=== PATIENT | male | born 1970 | race Caucasian/White ===

== ENCOUNTER 2016-11-12 16:46 | Emergency (ER) | payer OTHER ==
[2016-11-12] MEDS ORDERED: DEXAMETHASONE 10 MG/ML VIAL PO STA (17:04)
[2016-11-12] MEDS ORDERED: IPRATROPIUM/ALBUTEROL 3 ML NEB INH STA (17:04)
[2016-11-12] MEDS ORDERED: DEXAMETHASONE 10 MG/ML VIAL ONE (17:08)
[2016-11-12] MEDS ORDERED: CHERRY SYRUP 10 ML UDC PO ONE (17:08)
[2016-11-12] MEDS ORDERED: IPRATROPIUM/ALBUTEROL 3 ML NEB INH ONE (17:15)
== END 2016-11-12 17:43 | disposition home or self-care (01) ==
DX: J45.21 Mild intermittent asthma with (acute) exacerbation (principal); H66.003 Acute suppurative otitis media without spontaneous rupture of ear drum, bilateral; F17.200 Nicotine dependence, unspecified, uncomplicated
CPT/HCPCS: 94640; 99282; 99283; A9270; J7620

== ENCOUNTER 2018-08-08 09:42 | Outpatient (CLI) | payer OTHER ==
--- NOTE | 2018-08-08 15:00 | MRI Report ---
Reason: LATERAL EPICONDYLITIS, UNSPECIFIED ELBOW Procedure Date: 08/08/2018 Accession Number: [id number] / [id number] Procedure: MRI - Elbow RT W/O CPT Code: FULL RESULT: EXAM: RIGHT ELBOW MRI WITHOUT CONTRAST EXAM DATE: 08/08/2018 10:47 AM. CLINICAL HISTORY: LATERAL EPICONDYLITIS, UNSPECIFIED ELBOW. COMPARISON: None. TECHNIQUE: Multiplanar, multisequence T1-weighted and fluid-sensitive sequences of the elbow without contrast. Other: None. FINDINGS: Bones and articular surfaces:There is a moderate-sized elbow joint effusion. There is amorphous intermediate signal within the joint space consistent with significant areas of synovitis. Synovitis surrounds the radial neck at the proximal radioulnar joint. Marrow edema in the underlying radius. Patchy areas of marrow edema at the medial and lateral epicondyles and adjacent to the articular surfaces. Cartilage thinning throughout the elbow joint. No discrete fracture identified. Musculotendinous structures: The biceps, triceps and brachialis insertions appear intact. The common extensor origin and common flexor pronator origin appear intact. No significant muscle atrophy or fatty replacement. Ligaments: The ulnar collateral, radial collateral, and lateral ulnar collateral ligaments appear grossly intact. IMPRESSION: 1. Elbow joint effusion with cartilage loss, significant synovitis and small areas of possible erosion and reactive marrow edema. The appearance suggests inflammatory arthritis such as rheumatoid arthritis. Septic arthritis is not excluded. Correlate clinically. [facility] MUSCULOSKELET[facility] RADIOLOGY SECTION
== END 2018-08-08 09:43 | disposition home or self-care (01) ==
LOC: DI 09:42
PROVIDERS: ATTEND Nurse Practitioner Family
DX: M24.121 Other articular cartilage disorders, right elbow (principal); M65.9 Synovitis and tenosynovitis, unspecified

== ENCOUNTER 2018-09-15 16:54 | Emergency (ER) | payer OTHER ==
[2018-09-15] MEDS ORDERED: ASPIRIN CHEW 81 MG TABLET PO STA (17:11)
--- NOTE | 2018-09-15 17:13 | ED Physician Documentation ---
PD HPI CHEST PAIN - Stated complaint Stated Complaint: CHEST PX - Chief complaint Chief Complaint: Cardiac - History obtained from History obtained from: Patient - History of Present Illness Timing - onset: Other (48-year-old gentleman with history of coronary disease with an VT and stent x1 in 2003. In 2004 he had a chest pain episode similar to this 1 with no pertinent findings after hospital evaluation. Since then he had milder episodes of chest pain but today has had sharp chest pain in the left anterior chest wall since this morning that is worse with motion of the left arm and deep breathing. He is not short of breath, dizzy, sweaty, or nauseous. He denies that the pain gets worse with exertion.) Review of Systems Constitutional: reports: Reviewed and negative Throat: reports: Reviewed and negative Cardiac: reports: Chest pain / pressure. denies: Palpitations, Pedal edema, Calf pain Respiratory: denies: Dyspnea, Cough GI: denies: Abdominal Pain PD PAST MEDICAL HISTORY - Past Medical History Cardiovascular: Coronary artery disease, [place] HEENT: Other Psych: Depression, Anxiety - Past Surgical History Past Surgical History: Yes Cardiovascular: Coronary stent, Cardiac catheterization, Angioplasty - Present Medications Home Medications: Ambulatory Orders Medication Instructions Recorded Confirmed Albuterol Sulf [Ventolin Hfa 1 - 2 puffs INH Q4HR PRN #1 inhaler 11/12/16 Inhaler] Azithromycin [Zithromax] 250 mg PO DAILY #6 tablet 11/12/16 Benzonatate [Tessalon] 100 - 200 mg PO TID PRN #20 capsule 11/12/16 - Allergies Allergies/Adverse Reactions: Allergies Allergy/AdvReac Type Severity Reaction Status Date / Time No Known Drug Allergies Allergy Verified 05/14/14 22:16 - Social History Does the pt smoke?: Yes Smoking Status: Current every day smoker Does the pt drink ETOH?: No Does the pt have substance abuse?: No - Immunizations Immunizations are current?: No Immunizations: TDAP >10years/unknown - POLST Patient has POLST: No PD ED PE NORMAL - Vitals Vital signs reviewed: Yes - General General: Alert and oriented X 3, No acute distress - HEENT HEENT: PERRL, EOMI - Neck Neck: Supple, no meningeal sign, No bony TTP - Cardiac Cardiac: RRR, No murmur - Respiratory Respiratory: No respiratory distress, Other (He is tender to the left anterior chest wall which reproduces his pain and he winces when he sits up due to the pain. He declines pain medication on initial evaluation.) - Abdomen Abdomen: Soft, Non tender - Back Back: No CVA TTP, No spinal TTP - Extremities Extremities: No edema, No calf tenderness / cord - Neuro Neuro: Alert and oriented X 3, Normal speech Results - Vitals Vitals: Vital Signs - 24 hr 09/15/18 09/15/18 09/15/18 16:59 17:34 17:35 Temperature 36.1 C L Heart Rate 82 79 Respiratory 18 16 Rate Blood Pressure 122/79 118/84 H Blood Pressure 118/84 H [Right] O2 Saturation 96 94 09/15/18 19:32 Temperature Heart Rate 70 Respiratory 27 H Rate Blood Pressure 108/74 Blood Pressure [Right] O2 Saturation 98 Oxygen O2 Source Room air - EKG (time done) 1706 Rate: Rate (enter#) (74) Rhythm: NSR [place]: Normal Intervals: Normal [place] QRS: Normal Ischemia: Normal ST segments Computer interpretation: Agree with computer - Labs Labs: Laboratory Tests 09/15/18 09/15/18 09/15/18 17:10 17:18 17:18 WBC 9.8 RBC 4.92 Hgb 15.4 Hct 46.2 MCV 93.9 MCH 31.2 H MCHC 33.3 RDW 13.3 Plt Count 280 MPV 6.6 L Neut # (Auto) 7.3 H Lymph # (Auto) 1.7 [place] # (Auto) 0.5 Eos # (Auto) 0.2 Baso # (Auto) 0.1 Absolute Nucleated RBC 0.00 Nucleated RBC % 0.0 Sodium 136 Potassium 4.0 Chloride 104 Carbon Dioxide 25 Anion Gap 7.0 BUN 17 Creatinine 1.0 Estimated GFR (MDRD) 80 L Glucose 99 Calcium 8.8 Total Bilirubin 0.6 AST 19 ALT 19 Alkaline Phosphatase 74 Troponin I B-Natriuretic Peptide 9 Total Protein 7.4 Albumin 3.9 Globulin 3.5 Albumin/Globulin Ratio 1.1 Lipase 25 18 18 17:18 19:38 WBC RBC Hgb Hct MCV MCH MCHC RDW Plt Count MPV Neut # (Auto) Lymph # (Auto) [place] # (Auto) Eos # (Auto) Baso # (Auto) Absolute Nucleated RBC Nucleated RBC % Sodium Potassium Chloride Carbon Dioxide Anion Gap BUN Creatinine Estimated GFR (MDRD) Glucose Calcium Total Bilirubin AST ALT Alkaline Phosphatase Troponin I < 0.04 < 0.04 B-Natriuretic Peptide Total Protein Albumin Globulin Albumin/Globulin Ratio Lipase - Rads (name of study) 1v chest Radiology: EMP read contemporaneously (Bilateral indistinct interstitial markings. For this a BNP was ordered and negative, he has no cough. He is a smoker.) PD MEDICAL DECISION MAKING - ED course ED course: 48-year-old gentleman with known coronary disease presents with chest pain actually seems musculoskeletal on examination and seems for him to similar to prior anginal his EKG is nonischemic and initial troponin was negative despite it having been going on all day. He is still fairly high risk patient though and as such we will do serial troponin in the emergency department. Departure - Departure Disposition: 01 Home, Self Care Clinical Impression: Chest wall pain Condition: Good Record reviewed to determine appropriate education?: Yes Instructions: ED Chest Pain Atypical Unkn Cause Comments: Call your doctor to arrange a follow-up appointment, make the next available appointment. In the interim, return anytime if worse or if new symptoms develop.
[2018-09-15 17:24] LABS: BASOPHILS # (AUTO) 0.1 10^3/uL (0.0-0.1); BASOPHILS % (AUTO) 0.9 %; EOSINOPHILS # (AUTO) 0.2 10^3/uL (0.0-0.7); EOSINOPHILS % (AUTO) 1.6 %; HGB - HEMOGLOBIN 15.4 g/dL (14.0-18.0); LYMPHOCYTES # (AUTO) 1.7 10^3/uL (1.5-3.5); LYMPHOCYTES % (AUTO) 17.9 %; MEAN CORPUSCULAR HEMOGLOBIN 31.2 pg (27.0-31.0); MEAN CORPUSCULAR HGB CONC 33.3 g/dL (32.0-36.0); MEAN CORPUSCULAR VOLUME 93.9 fL (80.0-94.0); MEAN PLATELET VOLUME 6.6 fL (7.4-11.4); MONOCYTES # (AUTO) 0.5 10^3/uL (0.0-1.0); MONOCYTES % (AUTO) 5.3 %; NEUTROPHILS # (AUTO) 7.3 10^3/uL (1.5-6.6); NEUTROPHILS % (AUTO) 74.3 %; PLT - PLATELET COUNT 280 10^3/uL (130-450); RED BLOOD COUNT 4.92 10^6/uL (4.70-6.10); RED CELL DISTRIBUTION WIDTH 13.3 % (12.0-15.0); WHITE BLOOD COUNT 9.8 x10^3/uL (4.8-10.8)
[2018-09-15 17:37] LABS: ALBUMIN 3.9 g/dL (3.2-5.5); ALBUMIN/GLOBULIN RATIO 1.1 (1.0-2.2); BILIRUBIN,TOTAL 0.6 mg/dL (0.2-1.0); CALCIUM 8.8 mg/dL (8.5-10.3); TOTAL PROTEIN 7.4 g/dL (6.7-8.2)
--- NOTE | 2018-09-15 17:44 | XRAY Report ---
Reason: CP since this AM Procedure Date: 09/15/2018 Accession Number: [id number] / [id number] Procedure: XR - Chest 1 View X-Ray CPT Code: 56956 FULL RESULT: EXAM: CHEST RADIOGRAPHY EXAM DATE: 09/15/2018 05:22 PM. CLINICAL HISTORY: CP since this AM. COMPARISON: None. TECHNIQUE: 1 view. FINDINGS: Lungs/Pleura: No focal consolidations, effusion, or pneumothorax. Indistinct interstitial markings throughout bilateral lungs. Mediastinum: Within exam limitations, the cardiomediastinal contour is normal. Other: None. IMPRESSION: Bilateral indistinct interstitial markings, edema versus atypical infection. [facility]
[2018-09-15 19:33] VITALS: BP 108/74
[2018-09-15] MEDS ORDERED: HYDROcod/ACET 5/325 Prepack 4 PO STA (20:15)
== END 2018-09-15 20:33 | disposition home or self-care (01) ==
LOC: ED 16:54
DX: R07.89 Other chest pain (principal); I25.10 Atherosclerotic heart disease of native coronary artery without angina pectoris; I25.2 Old myocardial infarction; Z95.5 Presence of coronary angioplasty implant and graft; F17.200 Nicotine dependence, unspecified, uncomplicated
CPT/HCPCS: 36415; 71045; 80053; 83690; 83880; 84484; 85025; 93005; 99283; 99284; A9270

== ENCOUNTER 2018-11-06 11:00 | Outpatient (CLI) | payer OTHER ==
--- NOTE | 2018-11-06 12:33 | XRAY Report ---
Reason: RT ELBOW PX,NECK PX,BACK PX Procedure Date: 11/06/2018 Accession Number: [id number] / [id number] Procedure: WCP - Cervical Spine 2 View CPT Code: FULL RESULT: EXAM: CERVICAL SPINE RADIOGRAPHY EXAM DATE: 11/06/2018 11:12 AM. CLINICAL HISTORY: Right elbow pain, neck pain, back pain. COMPARISONS: None. TECHNIQUE: 3 views. FINDINGS: Alignment: Normal. No spondylolisthesis or scoliosis. Bones: The cervical vertebral bodies and posterior elements are well visualized from the skull base through C7-T1. No fractures or bone lesions. Disks: Disk space narrowing at C5-C6 and C6-C7 with mild anterior marginal osteophyte. Facets: No significant degenerative disease. Soft Tissues: Normal. No prevertebral soft tissue swelling. The visualized lung apices are clear. IMPRESSION: Mild degenerative disk space narrowing C5-C6 and C6-C7. No fracture appreciated. [facility]
--- NOTE | 2018-11-06 12:47 | XRAY Report ---
Reason: RT ELBOW PX,NECK PX,BACK PX Procedure Date: 11/06/2018 Accession Number: [id number] / [id number] Procedure: WCP - Elbow 2 View RT CPT Code: FULL RESULT: EXAM: RIGHT ELBOW RADIOGRAPHY EXAM DATE: 11/06/2018 11:08 AM. CLINICAL HISTORY: Right elbow pain, neck pain, back pain. COMPARISON: None. TECHNIQUE: 2 views. FINDINGS: Bones: Normal. No fractures or bone lesions. Joints: There is elevation of the anterior fat pad consistent with elbow effusion. Joint space otherwise appears normal. Soft Tissues: Normal. No soft tissue swelling. IMPRESSION: Elbow effusion without appreciable fracture. [facility]
--- NOTE | 2018-11-06 12:51 | XRAY Report ---
Reason: RT ELBOW PX,NECK PX,BACK PX Procedure Date: 11/06/2018 Accession Number: [id number] / [id number] Procedure: WCP - Pelvis 1 View CPT Code: FULL RESULT: EXAM: PELVIS RADIOGRAPHY EXAM DATE: 11/06/2018 10:59 AM. CLINICAL HISTORY: Right elbow pain, neck pain, and back pain. COMPARISON: None. TECHNIQUE: 1 view. FINDINGS: Bones: Normal. No fracture or bone lesion. Joints: The visualized hip, pubis symphysis, and sacroiliac joints are preserved. No subluxation. Soft Tissues: Vascular stent overlies the left iliac artery. IMPRESSION: Normal pelvis radiography. [facility]
[2018-11-06 19:38] LABS: CRP - C-REACTIVE PROTEIN 1.5 mg/dL (0-1.0)
[2018-11-06 19:39] LABS: URIC ACID 5.5 mg/dL (2.6-7.2)
[2018-11-06 19:51] LABS: RHEUMATOID FACTOR NEGATIVE (Negative)
[2018-11-08 18:46] LABS: CYCLIC CITRULL PEPTIDE CCP IGG <16 UNITS
[2018-11-11 12:36] LABS: HLA-B27 Negative (Negative)
== END 2018-11-06 11:01 | disposition home or self-care (01) ==
LOC: DI.WCP 11:00
PROVIDERS: ATTEND Internal Medicine Rheumatology
DX: M25.521 Pain in right elbow (principal); M25.421 Effusion, right elbow; M48.02 Spinal stenosis, cervical region; M25.78 Osteophyte, vertebrae; M54.5 Low back pain
CPT/HCPCS: 36415; 72040; 72170; 84550; 85651; 86140; 86200; 86430

== ENCOUNTER 2019-06-10 16:24 | Outpatient (CLI) | payer OTHER ==
--- NOTE | 2019-06-11 08:05 | MRI Report ---
Reason: HEADACHE Procedure Date: 06/10/2019 Accession Number: [id number] / [id number] Procedure: MRI - Brain W/O CPT Code: FULL RESULT: EXAM: MRI BRAIN WITHOUT CONTRAST EXAM DATE: 06/10/2019 05:13 PM. CLINICAL HISTORY: Headache. COMPARISON: None. TECHNIQUE: Multiplanar, multisequence T1-weighted and fluid-sensitive MR sequences of the brain were performed. Sequences optimized for routine evaluation. Other: None. IV Contrast: None. FINDINGS: There is complete opacification of the right maxillary sinus. There is opacification of the anterior right ethmoid complex but the right frontal sinus remains normally aerated. This combination of findings would be consistent with a chronic right maxillary sinusitis which is either of the right maxillary ostium level of obstruction versus possibly represents a partial right-sided ostiomeatal unit pattern of obstruction. The images are degraded by motion. The diffusion-weighted images are normal. There is no evidence of acute or subacute cerebral infarction. The T2 axial FLAIR images are normal. Cerebral volume and ventricular size are normal. The T2* sequence is normal. There is no evidence of subacute or chronic hemorrhage. The bilateral parotid spaces exhibit normal signal intensity. The cerebral vascular flow voids are patent. IMPRESSION: 1. There is no evidence of acute or subacute cerebral infarction. 2. There is complete opacification of the right maxillary sinus and partial opacification of the anterior right ethmoid complex but normal aeration of the right frontal sinus. This combination of findings would be consistent with a chronic right maxillary sinusitis which is either of a right maxillary ostium level of obstruction versus partial right-sided ostiomeatal unit pattern of obstruction. Recommend correlation with clinical symptoms. 3. There is no significant white matter disease. 4. There is no evidence of brain mass. 5. The images are degraded by motion.
== END 2019-06-10 16:25 | disposition home or self-care (01) ==
LOC: DI 16:24
PROVIDERS: ATTEND Physician Assistant
DX: R51 Headache (principal)
CPT/HCPCS: 70551

== ENCOUNTER 2019-07-04 23:01 | Emergency (ER) | payer OTHER ==
--- NOTE | 2019-07-04 23:38 | ED Physician Documentation ---
PD HPI CHEST PAIN - Stated complaint Stated Complaint: CHEST PX - Chief complaint Chief Complaint: Cardiac - History obtained from History obtained from: Patient - History of Present Illness Timing - onset: How many weeks ago (1) Timing - details: Still present (had onset tonight again with intercourse/exertion, and had chest pain that persisted after rest.), Intermittant (with exertion) Quality: Pressure, Tightness, Aching, Dull. No: Sharp, Tearing Location: Substernal, Left chest Radiation: No: Jaw, Neck, Back Improved by: Rest (except for tonight) Worsened by: Exertion (Has noted substernal chest pain associated with exertional activity earlier in the week with working on his transmission and doing some heavy lifting. It would improve after resting. It happened several times through the week. He denied any rest symptoms. Tonight having intercourse with his he noticed the onset of the similar pain but much worse and it did not improve with rest. He is here for evaluation.) Similar symptoms before: Diagnosis (He states had an [place] about 12 years ago [place] and [place] single stent placed in his left coronary artery. He states that the time he was told his right artery had about an 80% blockage but was not enough for stenting at the time. He had cardiac rehab and follow-up with the budget manager for a year or 2. He then moved here and had not had any symptoms and did not have any cardiology follow-up.) Recently seen: Not recently seen Review of Systems Constitutional: denies: Fever, Chills Nose: denies: Rhinorrhea / runny nose, Congestion Throat: denies: Sore throat Cardiac: reports: Chest pain / pressure (with exertion this past week). denies: Palpitations, Pedal edema, Calf pain Respiratory: denies: Dyspnea, Cough GI: denies: Abdominal Pain, Nausea, Vomiting, Diarrhea Musculoskeletal: denies: Neck pain, Back pain Neurologic: denies: Generalized weakness, Focal weakness, Numbness, Near syncope, Altered mental status Endocrine: denies: Weight loss, Easy bruising / bleeding Immunocompromised: denies: Immunocompromised PD PAST MEDICAL HISTORY - Past Medical History Past Medical History: Yes Cardiovascular: Coronary artery disease, [place] Respiratory: None Neuro: None Endocrine/Autoimmune: None GI: None : None HEENT: Other Psych: Depression, Anxiety Musculoskeletal: None Derm: None - Past Surgical History Past Surgical History: Yes Cardiovascular: Coronary stent (about 12 years ago of LAD, and also reported 80% stenosis of right coronary artery but not needing stent at the time. Had ca rdiology follow up for 2 years, but then moved here to [facility] without Cardiology testing in the interim. ), Cardiac catheterization, Angioplasty - Present Medications Home Medications: Ambulatory Orders Medication Instructions Recorded Confirmed Aspirin Chewable [St Sanjay 81 mg PO DAILY 07/05/19 07/05/19 Aspirin] Statins Cholesterol Med 07/05/19 - Allergies Allergies/Adverse Reactions: Allergies Allergy/AdvReac Type Severity Reaction Status Date / Time No Known Drug Allergies Allergy Verified 07/04/19 23:03 - Living Situation Living Situation: reports: With spouse/s.o. Living Arrangement: reports: At home - Social History Does the pt smoke?: Yes Smoking Status: Current every day smoker Does the pt drink ETOH?: No Does the pt have substance abuse?: No - Family History Family history: reports: CAD - Immunizations Immunizations are current?: No Immunizations: TDAP >10years/unknown - POLST Patient has POLST: No PD ED PE NORMAL - Vitals Vital signs reviewed: Yes - General General: Alert and oriented X 3, Well developed/nourished, Other (appears in so me discomfort at rest.) - HEENT HEENT: Moist mucous membranes, Pharynx benign - Neck Neck: Supple, no meningeal sign, No adenopathy - Cardiac Cardiac: RRR, No murmur - Respiratory Respiratory: Clear bilaterally, Other (no chestwal tenderness) - Abdomen Abdomen: Normal bowel sounds, Soft, Non tender - Back Back: No CVA TTP - Derm Derm: Normal color, Warm and dry - Extremities Extremities: No deformity, No tenderness to palpate, No edema, No calf tenderness / cord - Neuro Neuro: Alert and oriented X 3, No motor deficit, Normal speech Results - Vitals Vitals: Vital Signs - 24 hr 07/04/19 07/04/19 07/04/19 23:03 23:12 23:57 Temperature 36.7 C Heart Rate 81 74 89 Respiratory 16 18 18 Rate Blood Pressure 126/77 125/85 H 115/71 O2 Saturation 98 95 95 07/05/19 07/05/19 07/05/19 00:14 00:23 01:24 Temperature Heart Rate 76 87 81 Respiratory 17 15 16 Rate Blood Pressure 95/65 103/72 O2 Saturation 95 94 96 07/05/19 07/05/19 01:40 02:19 Temperature Heart Rate 75 77 Respiratory 16 19 Rate Blood Pressure 93/72 115/77 O2 Saturation 98 99 Oxygen O2 Source Nasal cannula - EKG (time done) 23:05 Rate: Rate (enter#) (80) Rhythm: NSR [place]: Normal Intervals: Normal [place] QRS: Normal Ischemia: Normal ST segments. No: ST elevation c/w ischemia, ST depression - Labs Labs: Laboratory Tests 07/04/19 07/04/19 07/04/19 23:59 23:59 23:59 WBC 9.1 RBC 4.65 L Hgb 14.2 Hct 43.4 MCV 93.3 MCH 30.5 MCHC 32.7 RDW 13.5 Plt Count 274 MPV 8.6 Neut # (Auto) 5.6 Lymph # (Auto) 2.4 [place] # (Auto) 0.6 Eos # (Auto) 0.4 Baso # (Auto) 0.1 Absolute Nucleated RBC 0.00 Nucleated RBC % 0.0 Sodium 138 Potassium 3.6 Chloride 104 Carbon Dioxide 27 Anion Gap 7.0 BUN 13 Creatinine 0.9 Estimated GFR (MDRD) 90 Glucose 153 H Calcium 9.3 Magnesium 2.0 Total Bilirubin 0.4 AST 21 ALT 22 Alkaline Phosphatase 80 Troponin I High Sens 63.2 H* B-Natriuretic Peptide Total Protein 7.0 Albumin 3.5 Globulin 3.5 Albumin/Globulin Ratio 1.0 Lipase 24 07/04/19 07/05/19 23:59 01:55 WBC RBC Hgb Hct MCV MCH MCHC RDW Plt Count MPV Neut # (Auto) Lymph # (Auto) [place] # (Auto) Eos # (Auto) Baso # (Auto) Absolute Nucleated RBC Nucleated RBC % Sodium Potassium Chloride Carbon Dioxide Anion Gap BUN Creatinine Estimated GFR (MDRD) Glucose Calcium Magnesium Total Bilirubin AST ALT Alkaline Phosphatase Troponin I High Sens 61.8 H* B-Natriuretic Peptide 8 Total Protein Albumin Globulin Albumin/Globulin Ratio Lipase PD MEDICAL DECISION MAKING - ED course Complexity details: re-evaluated patient (His pain is improved with nitroglycerin and metoprolol. He had a transient drop in blood pressure to 9 the 8 systolic which improved with some IV fluids. His pain is now gone. The concern with the new onset exertional chest pain and now persistent pain after exertion requiring nitroglycerin concurrent with an elevated troponin gives concern for unstable angina versus non-STEMI and requires cardiology evaluation.), considered differential (concerning for new onset/unstable angina, given worsening symptoms and now tonight exertional CP without improvement on rest. ), d/w packaging sales consultant ([facility] at [facility], who accepts transfer. ) Departure - Departure Disposition: 02 Transfer Acute Care Hosp Clinical Impression: Elevated troponin Chest pain Qualifiers: Chest pain type: precordial pain Qualified Code(s): R07.2 - Precordial pain Condition: Stable Record reviewed to determine appropriate education?: Yes Discharge Date/Time: 07/05/19 03:15
[2019-07-05] MEDS ORDERED: NITROGLYCERIN SL 0.4 MG TABLET SL STA
[2019-07-05 00:18] LABS: BASOPHILS # (AUTO) 0.1 10^3/uL (0.0-0.1); BASOPHILS % (AUTO) 0.6 %; EOSINOPHILS # (AUTO) 0.4 10^3/uL (0.0-0.7); EOSINOPHILS % (AUTO) 3.9 %; HGB - HEMOGLOBIN 14.2 g/dL (14.0-18.0); LYMPHOCYTES # (AUTO) 2.4 10^3/uL (1.5-3.5); LYMPHOCYTES % (AUTO) 26.2 %; MEAN CORPUSCULAR HEMOGLOBIN 30.5 pg (27.0-31.0); MEAN CORPUSCULAR HGB CONC 32.7 g/dL (32.0-36.0); MEAN CORPUSCULAR VOLUME 93.3 fL (80.0-94.0); MEAN PLATELET VOLUME 8.6 fL (7.4-11.4); MONOCYTES # (AUTO) 0.6 10^3/uL (0.0-1.0); NEUTROPHILS # (AUTO) 5.6 10^3/uL (1.5-6.6); PLT - PLATELET COUNT 274 10^3/uL (130-450); RED BLOOD COUNT 4.65 10^6/uL (4.70-6.10); RED CELL DISTRIBUTION WIDTH 13.5 % (12.0-15.0); WHITE BLOOD COUNT 9.1 x10^3/uL (4.8-10.8)
[2019-07-05 00:31] LABS: ALBUMIN 3.5 g/dL (3.2-5.5); BILIRUBIN,TOTAL 0.4 mg/dL (0.2-1.0); CALCIUM 9.3 mg/dL (8.5-10.3); CREATININE 0.9 mg/dL (0.6-1.2)
--- NOTE | 2019-07-05 00:37 | XRAY Report ---
Reason: anterior chest pain Procedure Date: 07/05/2019 Accession Number: [id number] / [id number] Procedure: XR - Chest 2 View X-Ray CPT Code: 71003 FULL RESULT: EXAM: CHEST RADIOGRAPHY EXAM DATE: 07/05/2019 12:26 AM. CLINICAL HISTORY: Anterior chest pain. COMPARISON: CHEST 1 VIEW 09/15/2018 5:14 PM. TECHNIQUE: 2 views. FINDINGS: Lungs/Pleura: Subtle reticulonodular airspace opacities at the bases. No discrete consolidative pneumonia or effusion. No pneumothorax. Mediastinum: Heart and mediastinal contours are unremarkable. Other: None. IMPRESSION: Findings suggestive of bronchitis/bronchopneumonia in the lung bases. [facility]
[2019-07-05] MEDS ORDERED: HEPARIN 5,000 UNIT/ML VIAL IVP STA (01:03)
[2019-07-05] MEDS ORDERED: SODIUM CHLORIDE 0.9% 1,000 ML IV ONE (01:03)
[2019-07-05] MEDS ORDERED: HEPARIN 25000UNITS/500ML (D5W) 25,000 UNIT/500 ML BAG IV STA (01:03)
[2019-07-05] MEDS ORDERED: METOPROLOL SUCCINATE 25 MG TABLET PO STA (01:25)
[2019-07-05] MEDS ORDERED: CLOPIDOGREL 300 MG TABLET PO STA (01:25)
[2019-07-05 02:20] VITALS: BP 115/77
== END 2019-07-05 03:15 | disposition short-term general hospital (02) ==
LOC: ED 23:01
DX: R07.2 Precordial pain (principal); R74.8 Abnormal levels of other serum enzymes; I25.10 Atherosclerotic heart disease of native coronary artery without angina pectoris; I25.2 Old myocardial infarction; Z95.5 Presence of coronary angioplasty implant and graft; Z79.82 Long term (current) use of aspirin; F17.200 Nicotine dependence, unspecified, uncomplicated
CPT/HCPCS: 36415; 71046; 80053; 83690; 83735; 83880; 84484; 85025; 93005; 96361; 96374; 99284; 99285; A9270

== ENCOUNTER 2019-07-10 13:31 | Emergency (ER) | payer OTHER ==
[2019-07-10 13:47] VITALS: BP 113/72
[2019-07-10] MEDS ORDERED: cephALEXin 250 MG CAPSULE PO STA (15:21)
--- NOTE | 2019-07-10 15:23 | ED Physician Documentation ---
PD HPI SKIN - Stated complaint Stated Complaint: IV SITE SWOLLEN - Chief complaint Chief Complaint: Wound - History obtained from History obtained from: Patient - History of Present Illness Timing - onset: Other (He had an IV in the left arm, now has an infection there.) Pain level max: 3 Location: LUE Review of Systems Constitutional: reports: Reviewed and negative Cardiac: reports: Reviewed and negative Respiratory: reports: Reviewed and negative PD PAST MEDICAL HISTORY - Past Medical History Cardiovascular: Coronary artery disease, [place] Respiratory: None Neuro: None Endocrine/Autoimmune: None GI: None : None HEENT: Other Psych: Depression, Anxiety Musculoskeletal: None Derm: None - Past Surgical History Past Surgical History: Yes Cardiovascular: Coronary stent (about 12 years ago of LAD, and also reported 80% stenosis of right coronary artery but not needing stent at the time. Had cardiology follow up for 2 years, but then moved here to [facility] without Cardiology testing in the interim. ), Cardiac catheterization, Angioplasty - Present Medications Home Medications: Ambulatory Orders Medication Instructions Recorded Confirmed Aspirin Chewable [St Sanjay 81 mg PO DAILY 07/05/19 07/05/19 Aspirin] Statins Cholesterol Med 07/05/19 Atorvastatin Calcium [Lipitor] 07/10/19 Cephalexin [Keflex] 500 mg PO Q6H #28 capsule 07/10/19 Clopidogrel [Plavix] 07/10/19 - Allergies Allergies/Adverse Reactions: Allergies Allergy/AdvReac Type Severity Reaction Status Date / Time No Known Drug Allergies Allergy Verified 07/04/19 23:03 - Social History Does the pt smoke?: Yes Smoking Status: Current every day smoker Does the pt drink ETOH?: No Does the pt have substance abuse?: No - Immunizations Immunizations are current?: No Immunizations: TDAP >10years/unknown - POLST Patient has POLST: No PD ED PE NORMAL - Vitals Vital signs reviewed: Yes - General General: Alert and oriented X 3, No acute distress - Extremities Extremities: Other (There is a pustule on the dorsum of the hand, medial side with mild surrounding cellulitis. The pustule was incised with a needle during exam and a culture was sent. Full range of motion of the hand.) - Neuro Neuro: Alert and oriented X 3, Normal speech Results - Vitals Vitals: Vital Signs - 24 hr 07/10/19 13:44 Temperature 36.6 C Heart Rate 91 Respiratory 18 Rate Blood Pressure 113/72 O2 Saturation 97 Oxygen O2 Source Room air Departure - Departure Disposition: 01 Home, Self Care Clinical Impression: Cellulitis of left hand Condition: Good Record reviewed to determine appropriate education?: Yes Instructions: Cellulitis Dc Prescriptions: Cephalexin [Keflex] 500 mg PO Q6H #28 capsule Comments: We are performing a wound culture, the results should be done in 48-72 hours. If antibiotic change is necessary we will call you. Return if worse in the meantime, especially if you develop increased pain, fevers, cannot keep down the medication. Otherwise follow-up with your physician in approximately 2-3 days.
== END 2019-07-10 15:32 | disposition home or self-care (01) ==
LOC: ED 13:31
DX: L03.114 Cellulitis of left upper limb (principal); F17.200 Nicotine dependence, unspecified, uncomplicated; Z79.82 Long term (current) use of aspirin
CPT/HCPCS: 87070; 87181; 87205; 99283; A9270

== ENCOUNTER 2019-11-02 02:48 | Emergency (ER) | payer OTHER ==
--- NOTE | 2019-11-02 03:09 | ED Physician Documentation ---
History of Present Illness - Stated complaint Stated Complaint: L SHOULDER PX - Chief complaint Chief Complaint: Ext Problem - History obtained from History obtained from: Patient (The patient is a 49-year-old male who presents with a 24-hour history of left shoulder joint pain. The patient is a [id number] male he reports yesterday he woke up in the morning he felt like his left shoulder was frozen he denies trauma or falls or any history of left shoulder surgery.He denies any weakness in his left upper extremity.He denies any sensory loss. the patient states he has not tried any treatment prior to arrival.) Review of Systems Constitutional: reports: Reviewed and negative Eyes: reports: Reviewed and negative Ears: reports: Reviewed and negative Nose: reports: Reviewed and negative Throat: reports: Reviewed and negative Cardiac: reports: Reviewed and negative Respiratory: reports: Reviewed and negative GI: reports: Reviewed and negative : reports: Reviewed and negative Skin: reports: Reviewed and negative Musculoskeletal: reports: Extremity pain, Reviewed and negative Neurologic: reports: Reviewed and negative Psychiatric: reports: Reviewed and negative Endocrine: reports: Reviewed and negative Immunocompromised: reports: Reviewed and negative PD PAST MEDICAL HISTORY - Past Medical History Past Medical History: Yes Cardiovascular: High cholesterol, Coronary artery disease, [place] Respiratory: None Neuro: None Endocrine/Autoimmune: None GI: None : None HEENT: Other Psych: Depression, Anxiety Musculoskeletal: None Derm: None - Past Surgical History Past Surgical History: Yes Cardiovascular: Coronary stent, Cardiac catheterization, Angioplasty - Present Medications Home Medications: Ambulatory Orders Medication Instructions Recorded Confirmed Aspirin Chewable [St Sanjay 81 mg PO DAILY 07/05/19 11/02/19 Aspirin] Atorvastatin Calcium [Lipitor] 80 mg PO QPM 07/10/19 11/02/19 Clopidogrel [Plavix] 75 mg PO DAILY 07/10/19 11/02/19 - Allergies Allergies/Adverse Reactions: Allergies Allergy/AdvReac Type Severity Reaction Status Date / Time No Known Drug Allergies Allergy Verified 11/02/19 03:05 - Social History Does the pt smoke?: Yes Smoking Status: Current every day smoker Does the pt drink ETOH?: No Does the pt have substance abuse?: No - Immunizations Immunizations are current?: No Immunizations: TDAP >10years/unknown - POLST Patient has POLST: No PD ED PE NORMAL - Vitals Vital signs reviewed: Yes - General General: Alert and oriented X 3, No acute distress - HEENT HEENT: PERRL - Neck Neck: Supple, no meningeal sign - Cardiac Cardiac: RRR, No murmur - Respiratory Respiratory: Clear bilaterally - Abdomen Abdomen: Normal bowel sounds, Soft, Non tender, Non distended - Derm Derm: Warm and dry - Extremities Extremities: No deformity, No tenderness to palpate, No edema, Other (The left upper extremity shows no gross deformity there is a negative sulcus sign, There is no point over the acromioclavicular joint there is no instability with traction of the left upper extremity his radian, median, ulnar motor and sensory exam are Intact. Sensation is intact over the lateral deltoid.Compartments are soft throughout the left upper extremity he has palpableCompartments are soft throughout the left upper extremity he has palpable pulses that are symmetric. the patient does have decreased ROM diffusely in the left shoulder. 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, No motor deficit, No sensory deficit, Normal speech - Psych Psych: Normal mood, Normal affect Results - Vitals Vitals: Vital Signs - 24 hr 11/02/19 02:50 Temperature 36.5 C Heart Rate 87 Respiratory 16 Rate Blood Pressure 131/87 H O2 Saturation 97 Oxygen O2 Source Room air Departure - Departure Disposition: 01 Home, Self Care Clinical Impression: Left shoulder pain Qualifiers: Chronicity: acute Qualified Code(s): M25.512 - Pain in left shoulder Condition: Good Instructions: Rotator Cuff Injury Follow-Up: Julio Toscano MD [Provider Admit Priv/Credential] - Comments: IMPRESSION: Subtle irregularity of the inferior margin of the glenoid. Without history of any antecedent trauma, this may be sequela of a subchondral cyst. However, a subtle subacute fracture of the glenoid difficult to exclude with certainty. This could be further assessed with a nonemergent outpatient shoulder MRI, if clinically necessary.. please follow up with your pcp or orthopedic surgery for further evaluation. take ibuprofen as needed for pain.
[2019-11-02] MEDS ORDERED: IBUPROFEN 800 MG TABLET PO STA (03:19)
--- NOTE | 2019-11-02 04:15 | XRAY Report ---
Reason: PAIN Procedure Date: 11/02/2019 Accession Number: [id number] / [id number] Procedure: XR - Shoulder 3 View LT CPT Code: Final Report FULL RESULT: EXAM: LEFT SHOULDER RADIOGRAPHY EXAM DATE: 11/02/2019 03:44 AM. CLINICAL HISTORY: Pain. COMPARISON: None. TECHNIQUE: 3 views. FINDINGS: Bones: There is a subtle irregularity of the inferior margin of the glenoid. Considering lack of any history of antecedent trauma, this is probably secondary to a subchondral cyst. Joints: No dislocation. Soft Tissues: No significant soft tissue swelling. IMPRESSION: Subtle irregularity of the inferior margin of the glenoid. Without history of any antecedent trauma, this may be sequela of a subchondral cyst. However, a subtle subacute fracture of the glenoid difficult to exclude with certainty. This could be further assessed with a nonemergent outpatient shoulder MRI, if clinically necessary. [facility]
[2019-11-02 04:55] VITALS: BP 113/87
== END 2019-11-02 04:47 | disposition home or self-care (01) ==
LOC: ED 02:48
DX: M25.512 Pain in left shoulder (principal); R93.7 Abnormal findings on diagnostic imaging of other parts of musculoskeletal system; F17.200 Nicotine dependence, unspecified, uncomplicated
CPT/HCPCS: 73030; 99283; A9270